=== PATIENT | male | born 1935 | race Asian ===

== ENCOUNTER → 2016-11-02 | Outpatient (CLI) | payer MEDICARE ==
[~2016-11-02] MED LIST: ALBU18HF INH; ALPR0.254 PO; ASPI-621 PO; ATOR20TA9 PO; ATOR40TA78 PO; CARV3.1212 PO; CEFD300C2 PO; DOCU-30 PO; FAMO20TA7 PO; FURO20TA3 PO; FURO40TA6 PO; HYDR-3240 PO; LACT1CAP24 PO; LEVO500T8 PO; LEVO750T6 PO; MAGN400T7 PO; POTA20TA14 PO; PRAS10TA4 PO; TAMS0.4C2 PO; TIOT18CA INH
== END | disposition home or self-care (01) ==
LOC: CFH 12:48
PROVIDERS: ATTEND Internal Medicine Cardiovascular Disease
DX: Z95.2 Presence of prosthetic heart valve (principal)
CPT/HCPCS: 93306

== ENCOUNTER → 2016-12-04 | Outpatient (CLI) | payer MEDICARE ==
[~2016-12-04] MED LIST changes: -CEFD300C2 PO; +CEFD300C37 PO
== END | disposition home or self-care (01) ==
LOC: CFH 15:42
PROVIDERS: ATTEND Internal Medicine Critical Care Medicine
DX: R06.02 Shortness of breath (principal)
CPT/HCPCS: 71250